=== PATIENT | female | born 1970 | race Hispanic/Latino ===

== ENCOUNTER 2018-07-13 17:31 | Emergency (ER) | payer SELFPAY ==
[2018-07-13 18:21] VITALS: BP 129/96
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
[2018-07-13] MEDS ORDERED: MOTRIN PO ONE (21:27)
[2018-07-13] MEDS ORDERED: BACTRIM DS PO ONE (21:27)
== END 2018-07-13 21:37 | disposition home or self-care (01) ==
LOC: ED 17:31
DX: T23.222A Burn of second degree of single left finger (nail) except thumb, initial encounter (principal); L03.012 Cellulitis of left finger; I10 Essential (primary) hypertension; F32.9 Major depressive disorder, single episode, unspecified; F41.9 Anxiety disorder, unspecified; E11.9 Type 2 diabetes mellitus without complications; G89.29 Other chronic pain; F17.200 Nicotine dependence, unspecified, uncomplicated; Z86.2 Personal history of diseases of the blood and blood-forming organs and certain disorders involving the immune mechanism; Z90.710 Acquired absence of both cervix and uterus; Z79.899 Other long term (current) drug therapy; X58.XXXA Exposure to other specified factors, initial encounter; Y93.89 Activity, other specified; Y99.8 Other external cause status; Y92.89 Other specified places as the place of occurrence of the external cause
CPT/HCPCS: 82962; 99282